=== PATIENT | male | born 1965 | race Caucasian/White ===

== ENCOUNTER 2017-09-08 12:32 | Inpatient (IN) | payer OTHER ==
[2017-09-08] MEDS ORDERED: NS 1,000 ML IV ONE (12:49)
--- NOTE | 2017-09-08 12:52 | EDPHY ---
H & P Time Seen by Provider: 09/08/17 12:43 HPI/ROS: CHIEF COMPLAINT: Stroke alert HISTORY OF PRESENT ILLNESS: Patient is a 52-year-old man who brings himself to the emergency department complaining of paresthesias to his left face arm and leg. It was noted to triage that he had a slight facial droop on the left. That is now resolved. 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 He does have weakness in his left leg. He has chronic low back pain this post fusion and has follow-up with his spine surgeon next week. No recent fevers or infections. No head trauma. Denies chest pain or shortness of breath. REVIEW OF SYSTEMS: Constitutional: denies: chills, fever, recent illness, recent injury EENTM: denies: blurred vision, double vision, nose congestion Respiratory: denies: cough, shortness of breath Cardiac: denies: chest pain, irregular heart rate, lightheadedness, palpitations Gastrointestinal/Abdominal: denies: abdominal pain, diarrhea, nausea, vomiting, blood streaked stools Genitourinary: denies: dysuria, frequency, hematuria, pain Musculoskeletal: denies: joint pain, muscle pain Skin: denies: lesions, rash, jaundice, bruising Neurological: See HPI Hematologic/Lymphatic: denies: blood clots, easy bleeding, easy bruising Immunologic/allergic: denies: HIV/AIDS, transplant - Physical Exam General Appearance: WD/WN, mild distress Eyes, Ears, Nose, Throat Exam: PERRL/EOMI, normal ENT inspection, pharynx normal Neck: non-tender, full range of motion, supple, normal inspection. No: stiff neck, tender lateral Cardiovascular/Chest: normal peripheral pulses, regular rate, rhythm Respiratory: chest non-tender, lungs clear, normal breath sounds. No: crackles , rhonchi Gastrointestinal/Abdominal: normal bowel sounds, non tender, soft Back Exam: normal inspection Extremity: normal range of motion, non-tender, normal inspection Mental Status: alert, oriented x 3 CN's Exam: Left-sided facial paresthesias but no droop or deficit. normal hearing, normal speech, PERRL, normal eye position, normal gag reflex, normal pupil position, normal speech. No: facial asymmetry, facial droop, gaze palsy, tongue deviation to R, tongue deviation to L Coordination/Gait: normal finger to nose, normal gait Motor/Sensory: Difficulty lifting left leg off the bed. He states that this new this morning. 3/5 strength. Normal right leg and upper extremities. NIH stroke score 2 DTR: tricep (R): 2+, tricep (L): 2+, knee (R): 2+, knee (L): 2+ Skin Exam: warm/dry, normal color Lymphatic: no adenopathy Source: Patient Exam Limitations: No limitations - Medical/Surgical History Hx Asthma: No Hx Chronic Respiratory Disease: No Hx Diabetes: No Hx Cardiac Disease: No Hx Renal Disease: No Hx Cirrhosis: No Hx Alcoholism: No Hx HIV/AIDS: No Hx Splenectomy or Spleen Trauma: No Other PMH: MED HX-NONE. SURG-MULTIPLE ORTHO PAUL - Family History Significant Family History: No pertinent family hx - Social History Smoking Status: Never smoked Alcohol Use: None Constitutional: Initial Vital Signs Temperature (C) 36.7 C 09/08/17 13:00 Heart Rate 105 H 09/08/17 13:00 Respiratory Rate 16 09/08/17 13:00 Blood Pressure 167/96 H 09/08/17 13:00 O2 Sat (%) 92 09/08/17 13:00 O2 Delivery Mode Room Air Allergies/Adverse Reactions: Sulfa (Sulfonamide Antibiotics) [Sulfa(Sulfonamide Antibiotics)] Allergy (Severe , Verified 09/08/17 16:16) Anaphylaxis Home Medications: Medication Instructions Recorded Etodolac [ETODOLAC] 400 mg PO BID 09/08/17 Gabapentin [Neurontin 300 MG (*)] 300 mg PO DAILY 09/08/17 Gabapentin [Neurontin 300 MG (*)] 600 mg PO BID@1600,2100 09/08/17 Medical Decision Making - Diagnostics EKG Interpretation: An EKG obtained and was read and documented in trace view. Please see trace view for full reading and report. Sinus tachycardia, no acute ischemic changes ED Course/Re-evaluation: 1:15 p.m. the patient is currently being evaluated by [facility]. I spoke with them over the Teleprompter. They agree that the patient has a new left leg deficit. They do not appreciate any other deficits. They recommend tPA. Noncontrast CT is negative. 1:40 p.m. there was some delay and initiation of tPA because after hanging up with [facility] the patient wanted to ask me more questions about tPA. I was with another patient at that time and had to be taken out of there room. 2:50 p.m. the patient is feeling somewhat better. He states that his paresthesias have improved. He is now able to lift his left leg off the bed. We discussed his CT results which are reassuring. Will admit to the ICU for continued monitoring and treatment. 3:15 p.m. I discussed the case with Dr. Jacinda Givens who will admit to medical service. Differential Diagnosis: Partial list of the Differential diagnosis considered include but were not limited to; sciatica, CVA, anxiety and although unlikely based on the history and physical exam, I also considered acute coronary disease, dissection. Critical Care Time: Critical care time spent by me, Dr. Kumar exclusive with this patient was 45 minutes, exclusive of the PA time exclusive of procedures. The organ system that was at risk was neurologic and I gave IV fluids, medications, consultations admission to prevent worsening of the patient's condition - Data Points Laboratory Results: Laboratory Results 09/08/17 12:50 09/08/17 12:50 Medications Given: Gabapentin (Neurontin) 600 mg PO BID@1600,2100 TRACY Stop: 03/07/18 20:59 Last Admin: 09/08/17 21:03 Dose: 600 mg Discontinued Medications Alteplase, Recombinant (Activase) 8.9811 mg 0.09 mg/kg (8.9811 mg) IV ONCE ONE PRN Reason: Protocol Stop: 09/08/17 13:17 Last Admin: 09/08/17 13:30 Dose: 8.9811 mg Alteplase, Recombinant (Activase) 80.8299 mg 0.81 mg/kg (80.8299 mg) IV ONCE ONE PRN Reason: Protocol Stop: 09/08/17 13:17 Last Admin: 09/08/17 13:30 Dose: 80.8299 mg Sodium Chloride (Ns) 1,000 mls @ 500 mls/hr IV EDNOW ONE PRN Reason: Protocol Stop: 09/08/17 14:48 Last Admin: 09/08/17 13:47 Dose: 1,000 mls Sodium Chloride (Ns) 50 mls @ 0 mls/hr IV EDNOW ONE PRN Reason: Per Protocol Stop: 09/08/17 13:17 Last Admin: 09/08/17 13:30 Dose: 50 mls Point of Care Test Results: Chemistry 09/08/17 09/08/17 09/08/17 14:28 13:27 12:57 POC Sodium 140 mEq/L mEq/L 141 mEq/L mEq/L (135-145) (135-145) POC Potassium 3.9 mEq/L mEq/L 3.9 mEq/L mEq/L (3.3-5.0) (3.3-5.0) POC Chloride 102 mEq/L mEq/L 103 mEq/L mEq/L (97-110) (97-110) POC BUN 13 mg/dL mg/dL 13 mg/dL mg/dL (7-23) (7-23) POC Creatinine 0.9 mg/dL mg/dL 1.0 mg/dL mg/dL (0.7-1.3) (0.7-1.3) POC Glucose 107 mg/dL H mg/dL 157 mg/dL H mg/dL (70-100) (70-100) POC Troponin I 0.00 ng/mL ng/mL (0.00-0.08) ISTAT H&H 09/08/17 09/08/17 14:28 12:57 POC Hgb 15.3 gm/dL gm/dL 17.3 gm/dL gm/dL (13.7-17.5) (13.7-17.5) POC Hct 45 % % 51 % % (40-51) (40-51) Departure - Departure Disposition: [facility] Inpatient Acute Clinical Impression: Acute ischemic stroke, Paresthesia Condition: Fair
--- NOTE | 2017-09-08 13:04 | CPEKG ---
Heart Rate: 109 RR Interval: 550 P-R Interval: 164 QRSD Interval: 98 QT Interval: 348 QTC Interval: 469 P Odem: 37 QRS Odem: -29 T Wave Odem: 40 EKG Severity - OTHERWISE NORMAL ECG - EKG Impression: SINUS TACHYCARDIA EKG Impression: BORDERLINE LEFT AXIS DEVIATION Electronically Signed By: Endy Kumar 08-Sep-2017 13:13:30
[2017-09-08 13:09] LABS: PLATELET COUNT 200 10^3/uL (150-400)
[2017-09-08] MEDS ORDERED: ALTEPLASE 1 MG/ML SYR IV ONE (13:16)
[2017-09-08] MEDS ORDERED: ALTEPLASE 100 MG/100 ML VIAL IV ONE (13:16)
[2017-09-08] MEDS ORDERED: NS 50 ML IV ONE (13:16)
[2017-09-08 13:18] LABS: INR 0.88 (0.83-1.16); PROTIME(PATIENT) 12.2 SEC (12.0-15.0)
[2017-09-08] MEDS ORDERED: IOPAMIDOL (ISOVUE 370) 100 ML BTL IV ONE (13:43)
[2017-09-08] MEDS ORDERED: ONDANSETRON 4 MG/2 ML VIAL IVP PRN (16:28)
--- NOTE | 2017-09-08 17:05 | GHP ---
[f rep st] HISTORY AND PHYSICAL DATE OF ADMISSION: 09/08/2017 CHIEF COMPLAINT: Left-sided weakness. HISTORY: The patient is a 52-year-old male, who had acute onset at 9:30 this morning of left-sided w eakness. He first noticed paresthesias in his left arm and leg as well as left side of his face. He subsequently went to complete paralysis of his left leg. His left upper extremity was also weak, al though the leg was worse than the arm. He did have some transient facial droop and expressive aphasi a and he was told that his speech was not quite right. He presented to the emergency room and [facility] was consulted and tPA was administered for acute stroke. Since administration of tPA he is improving. Strength has nearly returned to normal. He only has some residual paresthesia at thi s time. PAST MEDICAL HISTORY: Chronic low back pain status post fusion. PAST SURGICAL HISTORY: Knee surgery. MEDICATIONS: Please see computer record for full detailed list. ALLERGIES: Sulfa. SOCIAL HISTORY: No smoking. He drinks 3 alcoholic beverages per day. He lives with his girlfriend and their dog. REVIEW OF SYSTEMS: Complete review of systems obtained. Review of systems negative regarding consti tutional, HEENT, GI, pulmonary, cardiovascular, , hematologic, musculoskeletal, endocrine, psych, e xcept for positives as in HPI. FAMILY HISTORY: Reviewed, noncontributory to presenting complaint. PHYSICAL EXAM: Well-developed, well-nourished male, in no acute distress. Temperature 36.7, pulse 8 6, blood pressure 144/93, saturating 93% on room air. EYE: Normal conjunctivae. Pupils equal, reac t to light. ENT: Normal ears and nose. Hearing intact. Normal teeth. Oropharynx moist. NECK: T rachea midline. No thyromegaly. CHEST: Normal respiratory effort. Lungs clear to auscultation radha aterally. CARDIOVASCULAR SYSTEM: Regular rhythm. No murmur. No lower extremity edema. ABDOMEN: Soft, nontender. No hepatosplenomegaly. SKIN: Warm, dry, intact. No rash. MUSCULOSKELETAL: No c yanosis or clubbing. Strength 5 over 5 in upper and lower extremities. NEURO: Cranial nerves intac t. Sensation is decreased to light touch on the left lower and left upper extremity. PSYCH: Alert and oriented x3. Normal mood and affect. Normal judgment and insight. Normal memory. LABS: White count 6.42, hematocrit 48.3, platelets 200. Sodium 143, potassium 4.3, chloride 103, bi carb 26, BUN 14, creatinine 0.9, glucose 158. Troponins negative. INR 0.88. EKG viewed by me. My personal interpretation is sinus tachycardia, no ST-T wave changes. Chest x-ray is negative. CT angiogram of the chest shows carotid bulb plaque with ulceration. Incid entally noted cervical spinal stenosis with foraminal narrowing. ASSESSMENT/PLAN: 1. Acute stroke status post tPA. His neuro exam is rapidly improving and almost back to baseline ex cept for some residual paresthesia. Head CT will be repeated at 24 hours. Neurotology will see him in consultation in the morning. I will check an echocardiogram and bubble. 2. Carotid ulceration. We will check a lipid panel in the morning. He will clearly need some type of anti-platelet drug after tPA protocol is complete. We will also ask Neurology to comment whether anything further surgically needs to be done for this ulceration. 3. Severe cervical spinal stenosis. Given his presentation that also included facial and speech sym ptoms, I think this was clearly a stroke rather than due to spinal cord disease. Will continue gabap entin. He should follow up with Neurosurgery. 4. Heavy alcohol use. Per his report 3 drinks per day. I think it is unlikely he will withdrawal, but we will watch for it. CODE STATUS: Full. ADMISSION STATUS: Will admit to observation. Reevaluate tomorrow regarding ongoing need for hospita lization. DVT PROPHYLAXIS: He is low risk. /[id number]/MODL
[2017-09-08] MEDS: GABAPENTIN 300 MG CAP PO SCH (21:03)
[2017-09-09 05:35] LABS: PLATELET COUNT 154 10^3/uL (150-400)
[2017-09-09] MEDS: ATORVASTATIN CALCIUM 40 MG TAB PO SCH (08:32)
[2017-09-09] MEDS: GABAPENTIN 300 MG CAP PO SCH ×3 (08:32→19:54)
[2017-09-09] MEDS: ACETAMINOPHEN 325 MG TAB PO PRN ×3 (09:16→19:54)
--- NOTE | 2017-09-09 09:33 | GCON ---
[f rep st] CONSULTATION NEUROLOGIC CONSULTATION REFERRING PHYSICIAN: Jacinda Givens MD The patient is a 52-year-old gentleman who I am asked to see in neurologic consultation regarding dre pected stroke following tPA administration yesterday. He said he got up yesterday morning and felt f ine, but then started to develop symptoms around 9:30 a.m. of left face and arm abnormal sensations a nd this was persisting to the point of concern that he came to the hospital and then started to notic e problems with his left leg to the point of near paralysis of the leg. He was evaluated by [facility] and had CT angiogram of the head and neck showing no large vessel occlusion, but perhaps a little bit of ulcerated plaque in the right internal carotid artery. He received IV tPA and has bee n admitted to the ICU for monitoring. Within a few hours, he was much better with most resolution of the deficits with the exception of a little bit of paresthesias in the left face and arm. At this p oint, he says the face and arm feel back to normal and he might have slight abnormal sensation in the left leg, but nothing else more specific. He denied chest pain, palpitations, or shortness of breat h at any point. He has a history of 3 prior lumbar spinal surgeries with the last one in [facility] He said that the symptoms were predominantly radicular pain and he has ne dontae had any profound weakness like this. He has some known cervical spine disease but is not noting prominent neck pain or radiation into the extremities. His head CT did not show any acute stroke. Elizabet prince is now about 18 hours after tPA and has been stable with vital signs and his exam has been stable w ith very minimal deficits. He says he does not regularly go to a physician. He is showing some hype rglycemia on his labs and mild hyperlipidemia. He has had knee surgery. SOCIAL HISTORY: He has about 3 drinks of alcohol per day. He lives with his girlfriend and their do g. He is not smoking. MEDICATIONS: The patient is not normally on any statin therapy or aspirin. Lipitor has been ordered now at 80 mg daily. ALLERGIES: To sulfa. PHYSICAL EXAM: The blood pressure is 140/85, pulse of 58, respirations 14, temperature 37.1. GENERA L: He is well developed, in no acute distress. EYES: Clear. NECK: Supple with no bruits or yenni s. CARDIAC EXAM: Regular rate and rhythm with no murmur. The patient's NIH Stroke Scale is 0. Pup ils are 3 mm and reactive. Extraocular movements are intact. Normal facial sensation and strength. He is alert, oriented. No obvious cognitive impairment. MOTOR EXAM: 5/5 strength. Sensation is p reserved for temperature and light touch. He is not ataxic in the upper extremity movements. Reflex es 1+. No pathologic reflexes. IMPRESSION: Total unit time of 70 minutes. The patient has experienced probable acute stroke, altho ugh there may be no residual deficit and, perhaps, the tPA intervention will prevent any tissue damag e at all. He seems to have recovered back to an NIH Stroke Scale of 0 at this stage. He needs furth er workup with clarification of the ulcered plaque in the right carotid, so a carotid ultrasound is p ending. I do not think he is a good candidate yet for consideration of anticoagulation, but antiplat elet therapy would be appropriate with Plavix. I would recommend that instead of just aspirin denys prince of the plaquing. He has already been placed on a statin. Echocardiogram is pending. He will have a followup head CT to make sure there is no hemorrhage. I told him that he would probably need to b e here another day and he says that he does not want to do that because of getting together with his daughter and that is very important to him. I explained that we would certainly help him do whatever we can, but we need to be very cautious about his safety and he will take that into consideration. His girlfriend is in the room and, hopefully, they can have a conversation about working this out so that he remains safe. In any case, we can follow up as an outpatient if he is here, but it looks as if he is followed by [facility], so that will be up to him to decide, or follow up with the [facility] a few weeks after discharge. /[id number]/MODL
--- NOTE | 2017-09-09 09:45 | ECHO ---
[email or web address] [address] [address] Main: [phone] Fax: Transthoracic Echocardiogram Name: FRAN BOOKER MR#: [id number] Study Date: 09/09/2017 Study Time: 08:34 AM Date of : 1965 Age: 52 year(s) Height: 180.3 cm (71 in.) Weight: 98.88 kg (218 lb.) BSA: 2.19 m2 Gender: Male Examination: Echo with Agitated Saline Indication: Ichemic Stroke Image Quality: Adequate Contrast: Requested by: Jacinda Givens BP: 117 mmHg/87 mmHg Heart Rate: Rhythm: Indication: Ichemic Stroke Procedure Staff Operations Leader: Alejandra Medrano RDCS Reading Physician: Norberto Moore MD Requesting Provider: Conclusions: Normal global systolic LV function. EF is 58 %. An agitated saline study was performed and was negative for intracardiac shunting. Mild mitral valve regurgitation is present. Trivial aortic valve regurgitation. Mild tricuspid regurgitation is present. The pulmonary artery pressure is normal. Measurements: Chambers Valvular Assessment AV/MV Valvular Assessment TV/PV Normal Normal Normal Name Value Range Name Value Range Name Value Range Ao Kylee (2D): 3.3 cm (1.4 cm-2.6 AV Vmax: 1.10 m/s (1 m/s-1.7 PV Vmax: 0.75 m/s (0.6 m/s-0.9 cm) m/s) m/s) IVSd (2D): 0.9 cm (0.6 cm-1.1 AV maxP mmHg ( - ) PV PGmax: 2 mmHg ( - ) cm) AV meanP mmHg ( - ) LVDd (2D): 4.8 cm (4.2 cm-5.9 ROSALIE (VTI): 2.3 cm ( - ) cm) MV E Vmax: 0.49 m/s ( - ) LVDs (2D): 3.4 cm (2.1 cm-4 MV A Vmax: 0.56 m/s ( - ) cm) MV E/A: 0.87 ( - ) LVPWd (2D): 1.0 cm (0.6 cm-1 cm) MV PHT: 0.067 s ( - ) LVOTd 2.0 cm 2.0 cm mm MVA (PHT): 3.3 s ( - ) LVEF (BP): 58 % (>=55 %) RVDd(2D): 3.4 cm (1.9 cm-3.8 cmmm) Continued Measurements: Chambers Valvular Assessment AV/MV Patient: FRAN BOOKER Study Date: 09/09/2017 Page 1 of 2 08:34 AM Name Value Name Value LADs: 3.6 cm MV DecTime: 208 m/s LADs Lon.3 cm MV E' Septal: 0.08 m/s LA Area: 18.7 cm2 MV E/E' Septal: 6.30 LA Volume: 50 ml MV E/E' Lateral: 4.90 LA Volume Index: 22.8 ml/m2 RA Area: 18.0 cm2 Additional Vessels Name Value Ao Ascendin.0 cm Inferior Vena Cava: 1.4 cm Findings: Left Ventricle: Normal size left ventricle. No LV hypertrophy. Normal global systolic LV function. EF is 58 %. No regional wall motion abnormality. Unable to assess diastolic dysfunction. Right Ventricle: Normal size right ventricle. Normal RV function. Left Atrium: The left atrium is normal in size. An agitated saline study was performed and was negative for intracardiac shunting. Right Atrium: The right atrium is normal in size. Mitral Valve: The mitral valve is normal in appearance and function. Mild mitral valve regurgitation is present. No mitral stenosis is present. Aortic Valve: The aortic valve is tri-leaflet. Trivial aortic valve regurgitation. No aortic valve stenosis is present. Tricuspid Valve: The tricuspid valve is normal in appearance and function. Mild tricuspid regurgitation is present. The pulmonary artery pressure is normal. Pulmonic Valve: The pulmonic valve is normal in appearance and function. There is no pulmonic regurgitation seen. Aorta: The aorta is normal. Normal size aortic root measuring 3.3 cm. Normal size ascending aorta measuring 3.0 cm. IVC: The IVC is normal sized. Pericardium: No pericardial effusion. No pleural effusion. (No Signature Object) Patient: FRAN BOOKER Study Date: 09/09/2017 Page 2 of 2 08:34 AM [id number]
--- NOTE | 2017-09-09 12:19 | HOSPPROG ---
Hospitalist Progress Note Assessment/Plan: Acute ischemic CVA - s/p tPa. NIHSS 0 this am. appreciate neurology assistance. reviewed with dr. trejo. -bedrest until this afternoon -repeat CT 24 hrs post-tPa, start plavix if neg for bleed -mri per neurology -start statin -echo without shunt -no a fib on tele, should have outpt 30 day cardiac event monitor, especially with etoh hx Carotid ulceration - discussed with vascular surgery and reviewed imaging. small pit / ulceration could be source of stroke. -dr. infante also recommends plavix (or consider anticoagulation) and repeat imaging in 4-6 weeks -if he had another stroke or symptoms worsened, he would consider surgical repair Spinal stenosis - has had some radicular symptoms, but this episode included facial droop and speech disturbance, more c/w CVA Alcohol use / abuse - watch for w/d Full code Dispo - change to inpt for ongoing stroke workup Subjective: Pt feels well, most of his weakness symptoms are resolved. speech normal. he wants to go home. has plans to go to [employer] festival with his daughter tomorrow morning. no cp or sob. no headaches or vision changes. has h/o intermittent LLE parasthesias related to spinal stenosis. Objective: Vital Signs Temp Pulse Resp BP Pulse Ox 37.0 C 59 L 15 140/90 H 94 09/09/17 09:00 09/09/17 10:00 09/09/17 10:00 09/09/17 10:00 09/09/17 10:00 Laboratory Results 09/09/17 05:12 09/08/17 09/09/17 09/10/17 05:59 05:59 05:59 Intake Total 300 Output Total 865 Balance -565 PT 12.2 SEC (12.0-15.0) 09/08/17 12:50 INR 0.88 (0.83-1.16) 09/08/17 12:50 - Physical Exam Constitutional: no apparent distress Eyes: PERRL Ears, Nose, Mouth, Throat: moist mucous membranes Cardiovascular: regular rate and rhythym, no murmur, rub, or gallop Respiratory: no respiratory distress, clear to auscultation Gastrointestinal: normoactive bowel sounds, soft, non-tender abdomen Skin: warm Musculoskeletal: full muscle strength Neurologic: AAOx3 Psychiatric: interacting appropriately ICD10 Worksheet Patient Problems: Problems Problem Status Onset Acute ischemic stroke Acute Paresthesia Acute
--- NOTE | 2017-09-09 12:26 | ASMTCMCOM ---
CM Note CM Note Notes: Patient admitted after a suspected stroke. He received tPA and was better within hours, with full resolution of his L sided deficits. Patient is normally independent, lives with his girlfriend and is employed. PT/OT/[facility] have been ordered, but I anticipate that they will clear him for home. Case Management available if any discharge needs arise. Current CM Discharge plan: home independent Date Signed: 09/09/2017 12:25 PM Electronically Signed By:Regina Allred RN
--- NOTE | 2017-09-09 15:14 | PDMN ---
Medical Necessity Medical necessity: Pt meets IN[place] criteria [place] [facility] [place] Stroke: Ischemic ( acute ischemic CVA, carotid ulceration, spinal stenosis with ongoing stroke workup).
[2017-09-09] MEDS: CLOPIDOGREL BISULFATE 75 MG TAB PO SCH (16:24)
[2017-09-10] MEDS: ACETAMINOPHEN 325 MG TAB PO PRN (04:50)
[2017-09-10 07:55] VITALS: BP 140/80
[2017-09-10] MEDS: CLOPIDOGREL BISULFATE 75 MG TAB PO SCH (08:00)
[2017-09-10] MEDS: GABAPENTIN 300 MG CAP PO SCH (08:00)
[2017-09-10] MEDS: ATORVASTATIN CALCIUM 40 MG TAB PO SCH (08:00)
--- NOTE | 2017-09-15 15:22 | GDS ---
[f rep st] DISCHARGE SUMMARY DISCHARGE DIAGNOSES: 1. Acute ischemic stroke, status post tPA. 2. Carotid artery ulceration. 3. Spinal stenosis. 4. Chronic low back pain. 5. History of alcohol use. CONSULTANTS: Dr. Tae Murcia, Neurology. IMAGING STUDIES AND PROCEDURES: 1. Head CT without contrast, September 08, 2017, showed no acute intracranial findings. 2. Head and neck CT angiography, September 08, 2017, showed plaques involving the carotid bulb bilateral ly, right more than left, without significant encroachment upon the lumen. A small focal ulceration in the right carotid is also noted. Otherwise, this was a normal CT angiogram of the [place]. Degenerative disk disease from C3-C4 through C7-T1 is noted with congenitally narrowed canal, dis k bulges, marginal osteophytes contributing to moderate to severe spinal stenosis and bilateral neura l foraminal stenoses. 3. Brain MRI, September 09, 2017, showed no acute intracranial findings. 4. A repeat head CT 24 hours post thrombocytopenia, September 09, 2017, was negative for hemorrhage. HISTORY: For details, please see history and physical dated September 08, 2017. In brief, the patient i s a 52-year-old male with a history of low back pain and spinal stenosis, who presented to the emerge ncy department with left-sided weakness, facial droop and expressive aphasia. [facility] was consulted in the emergency department. He was deemed a candidate for tPA, which was initiated. He was admitted to the intensive care unit for further management. HOSPITAL COURSE: Patient was admitted to the ICU. He completed 24 hours of tPA per protocol. His r epeat head CT was negative for hemorrhage. He was started on Plavix in the setting of a carotid ulce ration. This case was discussed with Dr. Wan from vascular surgery, who agreed with Plavix treatme nt and recommended he have followup with him in 4-6 weeks for repeat imaging. Certainly, if he had a nother stroke, Dr. Wan said he would consider surgically fixing this. I recommended he discontinue his anti-inflammatories, which he takes for cervical spinal stenosis due to the increased risk of bl eeding in the setting of Plavix. In addition, we talked about the increased risk of bleeding with he joel alcohol use. He had no evidence of withdrawal. His neurologic symptoms completely resolved. Th e day following admission, his NIH Stroke Scale was 0. A lipid panel was performed and showed a calc ulated LDL cholesterol of 145. He was started on statin therapy. DISPOSITION: Patient was discharged home in stable condition. FOLLOWUP: 1. Dr. Tae Murcia, neurology, in 2-[address] Elliot Wan, vascular surgery, in 4-6 weeks for consideration of repeat imaging of his [place] tid artery ulceration. 3. Dr. Mlacolm Alexander, cardiology, to arrange for outpatient cardiac event monitor to search for atria l fibrillation in the setting of recent stroke. 4. Primary care physician. 5. Neurosurgery, to address his spinal stenosis. DISCHARGE MEDICATIONS: Please see [employer] completed outpatient medication list. New medications on discharge include Plavix 75 mg p.o. daily, #30, no refills; atorvastatin 80 mg p.o. daily, #30, no re fills; Tylenol 650 mg p.o. q.4 hours p.r.n. Discontinued medications include etodolac, which was disc ontinued to minimize bleeding risk. He will continue Neurontin as previously prescribed. /[id number]/MODL
== END 2017-09-10 09:30 | disposition home or self-care (01) | DRG 66 ==
LOC: F2N 15:53 → OBSVTOIN 09-09 12:56
PROVIDERS: ADMIT Internal Medicine; ATTEND Internal Medicine
DX: I63.9 Cerebral infarction, unspecified (principal); I65.21 Occlusion and stenosis of right carotid artery; R29.702 NIHSS score 2; E78.5 Hyperlipidemia, unspecified; R73.9 Hyperglycemia, unspecified; F10.10 Alcohol abuse, uncomplicated; M48.02 Spinal stenosis, cervical region; M54.5 Low back pain; Z98.1 Arthrodesis status; Z88.2 Allergy status to sulfonamides
CPT/HCPCS: 82435-PO; 82565-PO; 82947-PO; 84132-PO; 84295-PO; 84484-PO; 84520-PO; 85014-PO; 92523-GN; 96374; G0378; J2997; Q9967